=== PATIENT | male | born 1950 | race Caucasian/White ===

== ENCOUNTER 2022-08-24 12:24 | Outpatient (CLI) | payer MEDICARE ==
[2022-08-24 13:34] LABS: #Eosinphils 0.1 10x3/uL (0.0-0.5); #Monocytes 0.8 10x3/uL (0.0-1.1); #Neutrophils 4.3 10x3/uL (1.5-8.4); %Basophils 0.3 % (0.0-2.0); %Eosinophils 1.7 % (0.0-6.0); %Lymphocytes 19.4 % (18.0-47.0); %Neutrophils 66.3 % (40.0-75.0); Hemoglobin 13.7 g/dL (13.5-17.5); Mean Corpuscular HGB CONC 33.8 g/dL (32.0-36.0); Mean Corpuscular Hemoglobin 29.8 pg (27.0-33.0); Mean Corpuscular Volume 88.2 fl (81.2-95.1); Mean Platelet Volume 10.3 fl (7.4-10.4); Platelet Count 248 10x3/uL (150-450); RBC Distribution Width 13.1 % (11.5-14.5); Red Blood Cell (RBC) Count 4.59 10x6/uL (4.32-5.72); White Blood Cell (WBC) Count 6.4 10x3/uL (3.5-10.5)
[2022-08-24 14:06] LABS: ALT (SGPT) 23 U/L (8-55); Albumin 4.2 g/dL (3.4-4.8); Alkaline Phosphatase 51 U/L (40-110); BUN (Urea Nitrogen) 13 mg/dL (8.4-25.7); Bilirubin, Total 0.3 mg/dL (0.2-1.2); Calc. Creatinine Clearance 0 mL/min (70-130); Estimated GFR 92
[2022-08-24 14:57] LABS: AST (SGOT) 20 U/L (5-34); Anion Gap 13 mmol/L (10-20); Calcium 9.3 mg/dL (7.8-10.44); Carbon Dioxide 27 mmol/L (23-31); Chloride 99 mmol/L (98-107); Globulin 2.4 g/dL (2.4-3.5); Glucose 100 mg/dL (83-110); Potassium 3.8 mmol/L (3.5-5.1); Protein, Total 6.6 g/dL (5.8-8.1); Sodium 135 mmol/L (136-145)
== END 2022-08-24 12:25 | disposition home or self-care (01) ==
LOC: LABBT 12:24
PROVIDERS: ATTEND Internal Medicine Cardiovascular Disease
DX: Z01.812 Encounter for preprocedural laboratory examination (principal); R94.39 Abnormal result of other cardiovascular function study
CPT/HCPCS: 80053; 85025

== ENCOUNTER 2022-08-28 05:48 | Day surgery (SDC) | payer MEDICARE ==
[2022-08-24 12:03] VITALS: BMI 26.2
[2022-08-28] MEDS ORDERED: Verapamil 5 MG/2 ML VIAL ONE (06:18)
[2022-08-28] MEDS ORDERED: Adenosine 6 MG/2 ML VIAL ONE (06:18)
[2022-08-28] MEDS ORDERED: Heparin 10,000 UNITS/ 10 ML VIAL ONE (06:18)
[2022-08-28] MEDS ORDERED: Nitroglycerin 50 MG/250 ML BOT 250 ML ONE (06:18)
[2022-08-28] MEDS ORDERED: Lidocaine 1% (PF) 30 ML VIAL ONE (06:18)
[2022-08-28] MEDS ORDERED: Midazolam HCl 2 mg/2 ml Vial ONE (06:53)
[2022-08-28] MEDS ORDERED: FENTANYL 50 MCG/ML 1 ML VIAL ONE (06:53)
== END 2022-08-28 11:57 | disposition home or self-care (01) ==
LOC: SDC 05:48
PROVIDERS: ATTEND Internal Medicine Cardiovascular Disease
PROC: 4A023N7 Measurement of Cardiac Sampling and Pressure, Left Heart, Percutaneous Approach (ICD-10-PCS; principal; 2022-08-28)
PROC: B2111ZZ Fluoroscopy of Multiple Coronary Arteries using Low Osmolar Contrast (ICD-10-PCS; 2022-08-28)
DX: I25.10 Atherosclerotic heart disease of native coronary artery without angina pectoris (principal); M19.90 Unspecified osteoarthritis, unspecified site; E78.00 Pure hypercholesterolemia, unspecified; G89.29 Other chronic pain; Z87.891 Personal history of nicotine dependence; Z79.1 Long term (current) use of non-steroidal anti-inflammatories (NSAID); Z79.899 Other long term (current) drug therapy
CPT/HCPCS: 93459; 99152; 99153; C1769; C1894; J0153; J1644; J2001; J2250; J3010

== ENCOUNTER 2022-09-10 11:15 | Inpatient (IN) | payer MEDICARE ==
[2022-09-10 12:13] LABS: Hemoglobin 13.5 g/dL (13.5-17.5); Mean Corpuscular HGB CONC 33.3 g/dL (32.0-36.0); Mean Corpuscular Hemoglobin 29.9 pg (27.0-33.0); Mean Corpuscular Volume 89.6 fl (81.2-95.1); Mean Platelet Volume 10.4 fl (7.4-10.4); Platelet Count 246 10x3/uL (150-450); RBC Distribution Width 13.2 % (11.5-14.5); Red Blood Cell (RBC) Count 4.52 10x6/uL (4.32-5.72); White Blood Cell (WBC) Count 5.9 10x3/uL (3.5-10.5)
[2022-09-10 12:47] LABS: Anion Gap 11 mmol/L (10-20); BUN (Urea Nitrogen) 14 mg/dL (8.4-25.7); Calc. Creatinine Clearance 0 mL/min (70-130); Calcium 8.8 mg/dL (7.8-10.44); Carbon Dioxide 26 mmol/L (23-31); Chloride 102 mmol/L (98-107); Estimated GFR 93; Glucose 94 mg/dL (83-110); Sodium 135 mmol/L (136-145)
[2022-09-17] MEDS ORDERED: Albumin 5% 500 ML ONE (06:15)
[2022-09-17] MEDS ORDERED: Fentanyl 250 MCG/5 ML VIAL ONE (06:31)
[2022-09-17] MEDS ORDERED: Midazolam HCl 5 mg/5 ml Vial ONE (06:31)
[2022-09-17] MEDS ORDERED: Insulin Regular 300 UNITS/3 ML VIAL ONE (06:32)
[2022-09-17] MEDS ORDERED: EPINEPHrine 1 MG/ML AMP ONE (06:32)
[2022-09-17] MEDS ORDERED: Norepinephrine 4 MG/4 ML VIAL ONE (06:32)
[2022-09-17] MEDS ORDERED: Rocuronium Bromide 50 MG/5 ML VIAL ONE (06:32)
[2022-09-17] MEDS ORDERED: niCARdipine 25 MG/10 ML SDV ONE (06:32)
[2022-09-17] MEDS ORDERED: Aminocaproic Acid 5 GM/20 ML VIAL ONE ×2 (06:32→07:31)
[2022-09-17] MEDS ORDERED: Heparin 10,000 UNITS/1 ML VIAL 30,000 UNITS in Sodium Chloride 0.9% 1,000 ML FS SCH (06:45)
[2022-09-17] MEDS ORDERED: CEFAZOLIN 2 GM VIAL ONE (07:15)
[2022-09-17] MEDS ORDERED: Sodium Chloride 0.9% 100 ML ONE (07:15)
[2022-09-17] MEDS ORDERED: Lidocaine 1% PF 5 ML VIAL ONE (07:31)
[2022-09-17] MEDS ORDERED: Papaverine 60 MG/2 ML VIAL ONE (07:31)
[2022-09-17] MEDS ORDERED: Heparin 30,000 units/30 ml VIAL ONE (07:31)
[2022-09-17] MEDS ORDERED: Calcium Chloride 1 GM/10 ML Abboject SYRINGE ONE (07:31)
[2022-09-17] MEDS ORDERED: Sodium Bicarb 50 MEQ/50 ML VIAL ONE (07:31)
[2022-09-17] MEDS ORDERED: Heparin 5,000 UNITS/ML VIAL ONE (07:31)
[2022-09-17] MEDS ORDERED: Thrombin 5000 UNITS/5 ML VIAL ONE (07:31)
[2022-09-17] MEDS ORDERED: Protamine Sulfate 250 MG/25 ML VIAL ONE (07:31)
[2022-09-17] MEDS ORDERED: PROPOFOL 200 MG/20 ML VIAL ONE (07:31)
[2022-09-17] MEDS ORDERED: Magnesium 5 GM/10 ML VIAL ONE (07:31)
[2022-09-17] MEDS ORDERED: Mannitol 12.5 GM/50 ML ONE (07:31)
[2022-09-17] MEDS ORDERED: Potassium Chloride 60 MEQ/30 ML VIAL ONE (07:31)
[2022-09-17] MEDS ORDERED: Rocuronium Bromide 10 MG/ML (10ML VIAL) ONE (07:31)
[2022-09-17] MEDS ORDERED: Cardioplegic Soln 1,000 ML BAG ONE (07:31)
[2022-09-17] MEDS ORDERED: Esmolol 100 MG/10 ML VIAL ONE (07:31)
[2022-09-17] MEDS ORDERED: Lidocaine 2% PF 100 mg/5 ml Syringe ONE (07:31)
[2022-09-17] MEDS ORDERED: Vancomycin 1 GM VIAL ONE (07:31)
[2022-09-17 10:45] LABS: ALV-art Gradient 84.675 mmHg (0-20); Actual Bicarbonate (HCO3a) 23.7 mEq/L (22-28); Base Excess (BEa) -1.7 mEq/L (-2.0 to +3.0); CO2 Tension 42.9 mmHg (35.0-45.0); Calcium, Ionized (arterial) 1.06 mmol/L (1.12-1.30); Carboxyhemoglobin (COHb) 0.1 gm% (0.0-3.0); Hemoglobin (Hb) 11.6 g/dL (14.0-18.0); O2 Tension (PaO2), arterial 146.9 mmHg (> 70.0); Potassium - ABG Lab 3.59 mmol/L (3.70-5.30); Puncture Site Arterial Line; pH, Arterial 7.36 (7.35-7.45)
[2022-09-17] MEDS ORDERED: Post-Op Insulin Drip Protocol IVPB PRN (10:48)
[2022-09-17] MEDS ORDERED: Mag-Al 1200 mg/1200 mg/30 ML UDCUP PO PRN (10:48)
[2022-09-17] MEDS ORDERED: Bisacodyl 5 MG TAB PO PRN (10:48)
[2022-09-17] MEDS ORDERED: Promethazine HCl 25 MG/ML VIAL IM PRN (10:48)
[2022-09-17] MEDS ORDERED: DOPamine 400 MG/D5W 250 ML 250 ML IVPB PRN (10:48)
[2022-09-17] MEDS ORDERED: HYDROcodone/Acetaminophen 5/325 mg Tablet PO PRN (10:48)
[2022-09-17] MEDS ORDERED: hydrALAZINE 20 MG/ML VIAL SLOW IVP PRN (10:48)
[2022-09-17] MEDS ORDERED: Acetaminophen 325 MG TAB PO PRN (10:48)
[2022-09-17] MEDS ORDERED: niCARdipine 25 MG in Sodium Chloride 0.9% 250 ML 250 ML IVPB PRN (10:48)
[2022-09-17] MEDS ORDERED: Hetastarch 6% 500 ML 500 ML IVPB PRN (10:48)
[2022-09-17] MEDS ORDERED: Ipratropium/Albuterol 3 ML NEB NEB PRN (10:48)
[2022-09-17] MEDS ORDERED: Guaifenesin DM 100-10/5 ML UDCUP PO PRN (10:48)
[2022-09-17] MEDS ORDERED: NOREPINEPHRINE 8 MG/250 ML-D5W 250 ML IVPB PRN (10:48)
[2022-09-17] MEDS ORDERED: Nitroglycerin 50 MG/250 ML BOT 250 ML IVPB PRN (10:48)
[2022-09-17] MEDS ORDERED: Bisacodyl 10 MG SUPP PR PRN (10:48)
[2022-09-17] MEDS: Morphine 2 MG/ML VIAL SLOW IVP PRN ×5 (10:55→14:26)
[2022-09-17] MEDS ORDERED: FENTANYL 50 MCG/ML 1 ML VIAL SLOW IVP PRN (10:58)
[2022-09-17] MEDS: FENTANYL 50 MCG/ML 1 ML VIAL SLOW IVP PRN ×5 (11:07→20:28)
[2022-09-17] MEDS: Lactated Ringer's 1,000 ML IV SCH (11:09)
[2022-09-17 11:10] LABS: Mean Corpuscular Hemoglobin 31.8 pg (27.0-31.0); Mean Corpuscular Volume 93.5 fl (78.0-98.0); Red Blood Cell (RBC) Count 3.47 mill/uL (4.70-6.10)
[2022-09-17] MEDS: Ketorolac Tromethamine 30 MG/ML VIAL IVP SCH ×2 (11:12→17:02)
[2022-09-17 11:15] LABS: INR-International Normal Ratio 1.3; Prothrombin Time 16.8 sec (12.0-14.7)
[2022-09-17] MEDS ORDERED: Dextrose 5% in Water 1,000 ML IV PRN (11:15)
[2022-09-17] MEDS ORDERED: HUMULIN R 100 UNITS in Sodium Chloride 0.9% 100 ML IVPB SCH (11:15)
[2022-09-17] MEDS ORDERED: Insulin Regular 300 UNITS/3 ML VIAL SC PRN (11:15)
[2022-09-17] MEDS ORDERED: Dextrose 50% Abboject 50 ML SYRINGE SLOW IVP PRN (11:15)
[2022-09-17 11:30] LABS: Anion Gap 8 mmol/L (10-20); BUN (Urea Nitrogen) 10 mg/dL (8.4-25.7); Calc. Creatinine Clearance 123 mL/min (70-130); Carbon Dioxide 22 mmol/L (23-31); Chloride 114 mmol/L (98-107); Estimated GFR 101; Glucose 126 mg/dL (83-110); Potassium 3.5 mmol/L (3.5-5.1); Sodium 140 mmol/L (136-145)
[2022-09-17 11:38] LABS: #Eosinphils 0.1 thou/uL (0.0-0.7); #Lymphocytes 0.9 thou/uL (1.20-3.40); #Monocytes 0.6 thou/uL (0.11-0.59); #Neutrophils 8.4 thou/uL (1.40-6.50); %Basophils 0.4 % (0.0-1.0); %Eosinophils 0.9 % (0.0-10.0); %Lymphocytes 8.6 % (21.0-51.0); %Neutrophils 84.1 % (42.0-75.0); Band 12 % (5-11); Eosinophils 1 % (0-10); Lymphocytes 11 % (21-51); MDiff Complete? YES; Mean Corpuscular HGB CONC 34.1 g/dL (32.0-36.0); Metamyelocyte 1 % (0-0); Monocytes 2 % (0-10); Neutrophil 73 % (42-75); Platelet Count 111 10x3/uL (130-400); Platelet Morphology Comment Appears Decreased; RBC Distribution Width 12.2 % (11.5-14.5); RBC Morphology Normal
[2022-09-17 11:43] LABS: Calcium 6.9 mg/dL (7.8-10.44)
[2022-09-17] MEDS: Potassium Chloride 20 MEQ/100 ML PREMIX BAG IVPB PRN ×2 (12:19→17:53)
[2022-09-17] MEDS: CEFAZOLIN 2 GM in Sodium Chloride 0.9% 100 ML IVPB SCH ×2 (14:28→22:26)
[2022-09-17 15:02] LABS: ALV-art Gradient 74.875 mmHg (0-20); Actual Bicarbonate (HCO3a) 19.2 mEq/L (22-28); CO2 Tension 32.9 mmHg (35.0-45.0); Carboxyhemoglobin (COHb) 0.5 gm% (0.0-3.0); Hemoglobin (Hb) 11.7 g/dL (14.0-18.0); O2 Tension (PaO2), arterial 97.9 mmHg (> 70.0); Potassium - ABG Lab 3.75 mmol/L (3.70-5.30); Puncture Site Arterial Line; pH, Arterial 7.39 (7.35-7.45)
[2022-09-17] MEDS: Ondansetron PF 4 MG/2 ML Vial IVP PRN (15:28)
[2022-09-17] MEDS: HYDROcodone/Acetaminophen 5/325 mg Tablet PO PRN ×2 (16:32→22:25)
[2022-09-17 17:09] LABS: Hemoglobin 11.5 g/dL (14.0-18.0)
[2022-09-17 17:22] LABS: Potassium 3.7 mmol/L (3.5-5.1)
[2022-09-17] MEDS ORDERED: Famotidine/PF 20 mg/2ml Vial SLOW IVP SCH (21:00)
[2022-09-18] MEDS: Ketorolac Tromethamine 30 MG/ML VIAL IVP SCH ×5 (00:17→23:49)
[2022-09-18] MEDS: FENTANYL 50 MCG/ML 1 ML VIAL SLOW IVP PRN (04:18)
[2022-09-18 04:48] LABS: #Lymphocytes 0.7 thou/uL (1.20-3.40); #Monocytes 1.1 thou/uL (0.11-0.59); #Neutrophils 7.5 thou/uL (1.40-6.50); %Basophils 0.2 % (0.0-1.0); %Eosinophils 0.1 % (0.0-10.0); %Monocytes 11.5 % (0.0-10.0); %Neutrophils 81.1 % (42.0-75.0); Mean Corpuscular HGB CONC 32.2 g/dL (32.0-36.0); Mean Corpuscular Hemoglobin 30.9 pg (27.0-31.0); Mean Platelet Volume 8.5 fL (7.4-10.4); Platelet Count 149 10x3/uL (130-400); RBC Distribution Width 12.6 % (11.5-14.5); Red Blood Cell (RBC) Count 3.88 mill/uL (4.70-6.10); White Blood Cell (WBC) Count 9.3 10x3/uL (4.8-10.8)
[2022-09-18 05:21] LABS: Anion Gap 11 mmol/L (10-20); BUN (Urea Nitrogen) 12 mg/dL (8.4-25.7); Calc. Creatinine Clearance 117 mL/min (70-130); Calcium 8.1 mg/dL (7.8-10.44); Carbon Dioxide 21 mmol/L (23-31); Chloride 111 mmol/L (98-107); Estimated GFR 98; Glucose 107 mg/dL (83-110); Potassium 3.7 mmol/L (3.5-5.1); Sodium 139 mmol/L (136-145)
[2022-09-18] MEDS: Ondansetron PF 4 MG/2 ML Vial IVP PRN (06:05)
[2022-09-18] MEDS: CEFAZOLIN 2 GM in Sodium Chloride 0.9% 100 ML IVPB SCH (06:06)
[2022-09-18] MEDS: Lactated Ringer's 1,000 ML IV SCH (06:06)
[2022-09-18] MEDS: Potassium Chloride 20 MEQ/100 ML PREMIX BAG IVPB PRN (06:38)
[2022-09-18] MEDS ORDERED: Nitroglycerin 0.4 MG TAB (25 Tab Bottle) SL PRN (07:07)
[2022-09-18] MEDS: Potassium Chloride 10 MEQ TAB PO SCH (08:13)
[2022-09-18] MEDS: Famotidine 20 MG TAB PO SCH ×2 (08:14→20:01)
[2022-09-18] MEDS: Magnesium 2 GM/50 ML(in water) 2 GM in Premix Bag 1 BAG IVPB SCH (08:14)
[2022-09-18] MEDS: Polyethylene Glycol 3350 17 GM Packet PO SCH (08:14)
[2022-09-18] MEDS: Aspirin 325 MG TAB PO SCH (08:14)
[2022-09-18] MEDS: HYDROcodone/Acetaminophen 5/325 mg Tablet PO PRN ×2 (08:18→15:40)
[2022-09-18] MEDS: Dorzolamide HCl 2% Ophth Soln 10 ml Bottle EA EYE SCH ×2 (08:19→20:03)
[2022-09-18] MEDS ORDERED: Insulin Glargine 30 UNITS/0.3 ML VIAL SC PRN (11:14)
[2022-09-18] MEDS: Atorvastatin Calcium 20 MG TAB PO SCH (20:02)
[2022-09-18] MEDS: Latanoprost 0.005% Ophth Soln 2.5 ml Bottle EA EYE SCH (20:04)
[2022-09-18] MEDS: Prazosin HCl 1 MG CAP PO SCH (20:07)
[2022-09-19] MEDS: HYDROcodone/Acetaminophen 5/325 mg Tablet PO PRN ×2 (03:15→10:05)
[2022-09-19] MEDS: Ketorolac Tromethamine 30 MG/ML VIAL IVP SCH ×3 (04:40→18:21)
[2022-09-19] MEDS: Polyethylene Glycol 3350 17 GM Packet PO SCH (10:04)
[2022-09-19] MEDS: Aspirin 325 MG TAB PO SCH (10:05)
[2022-09-19] MEDS: Famotidine 20 MG TAB PO SCH ×2 (10:05→21:31)
[2022-09-19] MEDS: Furosemide 40 MG TAB PO SCH (10:05)
[2022-09-19] MEDS: Metoprolol Tartrate 25 MG TAB PO SCH ×2 (10:07→21:31)
[2022-09-19] MEDS: Magnesium 2 GM/50 ML(in water) 2 GM in Premix Bag 1 BAG IVPB SCH (10:09)
[2022-09-19] MEDS: Dorzolamide HCl 2% Ophth Soln 10 ml Bottle EA EYE SCH ×2 (10:10→21:31)
[2022-09-19] MEDS: Potassium Chloride 10 MEQ TAB PO SCH (10:12)
[2022-09-19 15:17] LABS: Analyzer IN Cardio OR; Base Excess (BEa) -4.6 mEq/L (-2.0 to +3.0); CO2 Tension 35.5 mmHg (35.0-45.0); Calcium, Ionized (arterial) 1.16 mmol/L (1.12-1.30); Carboxyhemoglobin (COHb) 0.8 gm% (0.0-3.0); Hemoglobin (Hb) 12.6 g/dL (14.0-18.0); O2 Tension (PaO2), arterial 351.3 mmHg (> 70.0); Potassium - ABG Lab 3.42 mmol/L (3.70-5.30); pH, Arterial 7.37 (7.35-7.45)
[2022-09-19 15:18] LABS: Actual Bicarbonate (HCO3a) 23.1 mEq/L (22-28); Analyzer IN Cardio OR; Base Excess (BEa) -3.2 mEq/L (-2.0 to +3.0); CO2 Tension 46.4 mmHg (35.0-45.0); Calcium, Ionized (arterial) 1.12 mmol/L (1.12-1.30); Carboxyhemoglobin (COHb) 0.4 gm% (0.0-3.0); Hemoglobin (Hb) 11.9 g/dL (14.0-18.0); O2 Tension (PaO2), arterial 410.9 mmHg (> 70.0); Potassium - ABG Lab 3.42 mmol/L (3.70-5.30); pH, Arterial 7.32 (7.35-7.45)
[2022-09-19 15:18] LABS: Actual Bicarbonate (HCO3a) 21.6 mEq/L (22-28); Analyzer IN Cardio OR; Base Excess (BEa) -4.6 mEq/L (-2.0 to +3.0); CO2 Tension 45.4 mmHg (35.0-45.0); Calcium, Ionized (arterial) 1.03 mmol/L (1.12-1.30); Carboxyhemoglobin (COHb) 0.2 gm% (0.0-3.0); O2 Tension (PaO2), arterial 409.8 mmHg (> 70.0); Potassium - ABG Lab 4.27 mmol/L (3.70-5.30)
[2022-09-19 15:18] LABS: Actual Bicarbonate (HCO3v) 22 mEq/L (22-28); Analyzer IN Cardio OR; Base Excess -4.1 mEq/L (-2.0 to +3.0); Calcium, Ionized (venous) 1.05 mmol/L (1.16-1.32); Chloride (VBG) 107 mmol/L (98-106); Hemoglobin (Hb) 9.2 g/dL (12.6-17.4); Potassium (VBG) 4.25 mmol/L (3.70-5.30); Sodium 133.9 mmol/L (133-146); pH (venous) 7.31 (7.32-7.43)
[2022-09-19 15:21] LABS: Actual Bicarbonate (HCO3a) 19.2 mEq/L (22-28); Analyzer IN Cardio OR; Base Excess (BEa) -5.3 mEq/L (-2.0 to +3.0); CO2 Tension 34.2 mmHg (35.0-45.0); Calcium, Ionized (arterial) 1.06 mmol/L (1.12-1.30); Carboxyhemoglobin (COHb) 0.3 gm% (0.0-3.0); Hemoglobin (Hb) 10.9 g/dL (14.0-18.0); O2 Tension (PaO2), arterial 160.2 mmHg (> 70.0); Potassium - ABG Lab 3.51 mmol/L (3.70-5.30); pH, Arterial 7.37 (7.35-7.45)
[2022-09-19 15:21] LABS: Analyzer IN Cardio OR; Base Excess (BEa) -3.8 mEq/L (-2.0 to +3.0); CO2 Tension 42.7 mmHg (35.0-45.0); Calcium, Ionized (arterial) 1.06 mmol/L (1.12-1.30); Carboxyhemoglobin (COHb) 0.4 gm% (0.0-3.0); Hemoglobin (Hb) 9.2 g/dL (14.0-18.0); Potassium - ABG Lab 4.17 mmol/L (3.70-5.30); pH, Arterial 7.33 (7.35-7.45)
[2022-09-19 15:21] LABS: Puncture Site Arterial Line
[2022-09-19 15:29] LABS: Puncture Site Arterial Line
[2022-09-19 15:29] LABS: Puncture Site Arterial Line
[2022-09-19 15:30] LABS: Puncture Site Arterial Line
[2022-09-19 15:30] LABS: Puncture Site Arterial Line
[2022-09-19 16:56] VITALS: BMI 26.8
[2022-09-19] MEDS ORDERED: traMADol HCl 50 MG TAB PO PRN (18:25)
[2022-09-19] MEDS: Atorvastatin Calcium 20 MG TAB PO SCH (21:31)
[2022-09-19] MEDS: Latanoprost 0.005% Ophth Soln 2.5 ml Bottle EA EYE SCH (21:31)
[2022-09-19] MEDS: Prazosin HCl 1 MG CAP PO SCH (21:32)
[2022-09-20] MEDS: Ketorolac Tromethamine 30 MG/ML VIAL IVP SCH ×2 (01:19→06:07)
[2022-09-20 08:18] VITALS: TEMP 97.8
[2022-09-20] MEDS: Potassium Chloride 10 MEQ TAB PO SCH (09:11)
[2022-09-20] MEDS: Aspirin 325 MG TAB PO SCH (09:11)
[2022-09-20] MEDS: Furosemide 40 MG TAB PO SCH (09:11)
[2022-09-20] MEDS: Famotidine 20 MG TAB PO SCH (09:11)
[2022-09-20] MEDS: Dorzolamide HCl 2% Ophth Soln 10 ml Bottle EA EYE SCH (09:11)
[2022-09-20] MEDS: Polyethylene Glycol 3350 17 GM Packet PO SCH (09:12)
[2022-09-20] MEDS: Metoprolol Tartrate 25 MG TAB PO SCH (09:12)
[2022-09-20 09:22] VITALS: BP 110/53
== END 2022-09-20 11:22 | disposition home or self-care (01) | DRG 236 ==
LOC: SURG A 09-17 05:50 → CCU 09-17 10:25 → 2NO 09-18 18:46
PROVIDERS: ADMIT Thoracic Surgery (Cardiothoracic Vascular Surgery); ATTEND Thoracic Surgery (Cardiothoracic Vascular Surgery)
PROC: 021109W Bypass Coronary Artery, Two Arteries from Aorta with Autologous Venous Tissue, Open Approach (ICD-10-PCS; principal; 2022-09-17)
PROC: 02100Z9 Bypass Coronary Artery, One Artery from Left Internal Mammary, Open Approach (ICD-10-PCS; 2022-09-17)
PROC: 02L70CK Occlusion of Left Atrial Appendage with Extraluminal Device, Open Approach (ICD-10-PCS; 2022-09-17)
PROC: 5A1221Z Performance of Cardiac Output, Continuous (ICD-10-PCS; 2022-09-17)
DX: I25.10 Atherosclerotic heart disease of native coronary artery without angina pectoris (principal); I10 Essential (primary) hypertension; E78.5 Hyperlipidemia, unspecified; M19.90 Unspecified osteoarthritis, unspecified site; H40.9 Unspecified glaucoma; Z98.890 Other specified postprocedural states; Z87.891 Personal history of nicotine dependence; Z79.899 Other long term (current) drug therapy
CPT/HCPCS: 36416; 36430; 71045; 80048; 82805; 82947; 85025; 85027; 85610; 85730; 86850; 86900; 86901; 93005; 93010; 93798; 94002; 97139; C1751; C1776; J0171; J1642; J1644; J1815; J1885; J2001; J2150; J2250; J2272; J2405; J2440; J2704; J2720; J3010; J3370; J3475; J3480; J3490; J7120; P9045; S0017; S0028